=== PATIENT | female | born 1980 | race Caucasian/White ===

== ENCOUNTER 2016-07-02 18:08 | Observation (INO) | payer SELFPAY ==
[~2016-07-02] VITALS: Ht 162.6 cm; Wt 49.7 kg
[~2016-07-02 18:08] MED LIST: ALPR0.5T PO; BTR10SP2; BUTT50CA PO; ESCI10TA PO; HYDR-3702 PO; IBP200T PO; INDM25C PO; LORA0.5T PO; LURA40TA PO; MAGN27TA2 PO; METR500T17 PO; NAPR220C11 PO; OMEG-103; OMEP20CA12 PO; OXCA600T3 PO; OXYC1TAB87 PO; PREN1TAB79 PO; SUMA100T2 PO; TOPI-27 PO; TOPI200T25 PO; TOPI25TA36 PO; VILA40TA PO; [UNRECOGNIZED DRUG - CODE]
--- NOTE | 2016-07-02 19:28 | NUR ---
Pt arrives ambulatory direct admit from Dr Driver office. Pt c/o headache. Dr Hanley here to write orders. See admission assessment for further details.
--- OUTSIDE RECORDS SUMMARY | 2016-07-02 19:28 | XMS REPORT | Continuity of Care Document ---
Author Author [facility] Organization [facility] Address Unknown Phone Unavailable Care Team Providers Care Deboner Name Role Phone Villa Herman PCP [phone] Source Comments Some departments are not documenting in the electronic medical record. If you do not see the information that you expected, contact Release of Information in the Health Information Management department at [phone] for further assistance in locating additional records.[facility] Active Allergies and Adverse Reactions No Known Allergies Current Medications Prescription Sig. Disp. Refills Start End Date Status Date OXcarbazepine (TRILEPTAL) Take 1,200 mg by mouth Active 600 mg tablet twice daily. sumatriptan (IMITREX) 100 Take 100 mg by mouth as Active mg tablet Needed. SUMAtriptan (IMITREX) 6 Inject 6 mg into area(s) Active mg/0.5 mL injection as directed daily as needed. topiramate (TOPAMAX) 100 Take 100 mg by mouth Active mg tablet twice daily. indomethacin (INDOCIN) 25 Take 25 mg by mouth as Active mg capsule Needed. magnesium oxide (MAG-OX) Take 400 mg by mouth Active 400 mg tablet daily. omeprazole DR(+) Take 20 mg by mouth Active (PRILOSEC) 20 mg capsule daily. vitamins, B complex (B Take 1 Tab by mouth Active COMPLEX-VITAMIN B12) Tab daily. butorphanol (STADOL) 10 Apply 1 [place] to each Active mg/mL nasal spray nostril as directed every 4 hours as needed. vilazodone 40 mg Tab Take 20 mg by mouth every Active morning. predniSONE (DELTASONE) 10 Take 1 Tab by mouth 30 Tab 1 05/06/20 Active mg tablet daily. 12 Active Problems Problem Noted Date Migraine with status migrainosus 05/03/2012 Social History Tobacco Use Types Packs/Day Years Used Date Current Every Day Smoker Cigarettes 1 Tobacco Cessation: Ready to Quit: No Comments: Alcohol Use Drinks/Week oz/Week Comments No Last Filed Vital Signs Vital Sign Reading Time Taken Blood Pressure 121/85 05/06/2012 11:15 AM CDT Pulse 80 05/06/2012 11:15 AM CDT Temperature 36.7 C (98.1 F) 05/06/2012 11:15 AM CDT Respiratory Rate - - Height 1.626 m (5' 4") 05/03/2012 1:44 AM CDT Weight 54.2 kg (119 lb 7.8 oz) 05/06/2012 4:00 AM CDT Body Mass Index 20.5 05/06/2012 4:00 AM CDT Oxygen Saturation 100% 05/06/2012 11:15 AM CDT Plan of Care Health Maintenance Due Date Last Done Comments Physical (Comprehensive) 1989 Exam Pertussis Vaccine 1993 Tetanus Vaccine 1999 Cervical Cancer Screening 2003 Influenza Vaccine 03/04/2016 Results from Last 3 Months Not on file
[2016-07-02] MEDS ORDERED: HALOPERIDOL 5 MG/ML (HALDOL) 1 ML AMP IM PRN (19:30)
[2016-07-02] MEDS ORDERED: MAGNESIUM HYDROXIDE 80MG/ML (MILK OF MAGNESIA) 30 ML UDC PO PRN (19:30)
[2016-07-02] MEDS ORDERED: ACETAMINOPHEN 325 MG TAB (TYLENOL) PO PRN (19:30)
[2016-07-02] MEDS ORDERED: DOCUSATE SODIUM 100 MG (COLACE) CAP PO PRN (19:30)
[2016-07-02] MEDS ORDERED: LORazepam 2 MG/ML (ATIVAN) 1 ML VIAL IV PRN (19:30)
[2016-07-02] MEDS ORDERED: NICOTINE 21 MG (NICODERM) PATCH TD SCH (19:30)
[2016-07-02] MEDS ORDERED: CALCIUM CARBONATE CHEWABLE 300 MG (TUMS) TABLET PO PRN (19:30)
[2016-07-02] MEDS ORDERED: POLYETHYLENE GLYCOL 17 GM (MIRALAX) PACKET PO PRN (19:30)
[2016-07-02] MEDS ORDERED: MAG HYDROX/AL HYDROX/SIMETH 200-200-20/5 ML (MAG-AL PLUS) 30 ML UDC PO PRN (19:30)
[2016-07-02] MEDS ORDERED: PROMETHAZINE HCL INJ 12.5 MG in SODIUM CHLORIDE 25 ML IV PRN (19:30)
[2016-07-02] MEDS ORDERED: THIAMINE 100 MG/ML (VITAMIN B1) 2 ML VIAL ONE (19:49)
[2016-07-02] MEDS ORDERED: SODIUM CHLORIDE FLUSH ONE (19:49)
[2016-07-02] MEDS ORDERED: D5LR 1,000 ML IV ONE (19:49)
--- NOTE | 2016-07-02 20:00 | NUR ---
22G SL started to left wrist by Kim Ramirez RN.
[2016-07-02 20:13] VITALS: BP 103/68
[2016-07-02] MEDS: MULTIVITAMIN INJ 10 ML, THIAMINE INJ 100 MG, MAGNESIUM SULFATE 1GM VIAL 2 GM in D5LR 1,... IV SCH (20:25)
[2016-07-02] MEDS ORDERED: METHADONE 10 MG (DOLOPHINE) TAB PO ONE (20:30)
[2016-07-02] MEDS ORDERED: KETOROLAC 30 MG/ML (TORADOL) 1 ML VIAL IV PRN (20:35)
--- NOTE | 2016-07-02 20:35 | History and Physical (E) ---
History & Physical PCP: Herman Driver MD CC: Narcotic withdrawal HPI Jesenia Bethea is a 36 year old female admitted from home per PCP request for narcotic withdrawal. He relays history that she contacted him for help. He has not been prescribing her any narcotics but she admitted to him she has been purchasing oxycodone/acetaminophen illicitly and using that. She described feeling more anxious, nauseous, with headache and "feeling like a want to crawl out of my skin." On arrival to unit, awake, alert, interactive, oriented, NAD. She is pleasant and cooperative. Relays history well. Admits to taking percocets since March. Taking 12 or more per day, often 4 at a time of 10-mg strength. Also sometimes taking morphine CR 30 mg tabs when she can get some. Last time she took any narcotic was morphine last night. Has no more pills at home. Denies injection medications ever. Called PCP today because "I wanted to be honest with him" and she felt she would need help to stop her current rash of usage. PMH * Depression * Bipolar Disorder * History of SVT * Migraines * Alcohol abuse with previous admissions for intoxication * Narcotic abuse * SURGICAL HISTORY * SVT s/p ablation * History of nasal polyps * 08/2015 * Strabismus surgery, age 7 and age 17 ALLERGIES: Please see list at end of report. HOME MEDICATIONS: Please see list at end of report. FH Mom is living and is healthy. Father is living and has diabetes, HTN. SOCIAL HISTORY . Lives in [place] with her three children. Parents live in the area and are supportive. Unemployed. Smokes. Drank last night, liquor. Says she had been staying sober before that. Taking illicit Percocet. ROS CONSTITUTION: Thinks she has lost a little weight. [place] fevered/chilled but no objective temp. HEENT: No change in vision or hearing. No sores in mouth, sore throat. CV: Has felt some palpitations. PULM: No cough, shortness of breath, difficulty breathing. GI: Nausea. Denies constipation or diarrhea. : No dysuria. No blood in urine. MS: Back pain. NEURO: No numbness or tingling. No weakness. INTEG: No rashes, lesions, or sores. ENDO: No heat or cold intolerance. No polydipsia or polyuria. HEME/LYMPH: No easy bruising or bleeding. No swollen glands. PSYCH: No change in mood or behavior. OBJECTIVE Temp 98.9 HR 107 RR 18 BP 103/68 93% RA GEN: Awake, alert, oriented, NAD HEENT: EOMI, PERRL, mildly dry oral mucosa. CV: RRR S1 S2 normal with no murmur LUNGS: CTA B with no R/R/W. ABD: Soft, NT/ND with normal bowel sounds. EXTR: No C/C/E. Normal peripheral pulses. INTEG: No rash. Tattoos. NEURO: No focal motor neuro deficit. LABS: PENDING ASSESSMENT Jesenia Bethea is a 36 year old female admitted from home per PCP request for narcotic withdrawal. She has long history of substance abuse with alcohol and narcotics. She has other chronic problems. PLAN * Narcotic withdrawal: Check labs, UDS, acetaminophen, salicylate, alcohol levels. Lorazepam for acute withdrawal symptoms. Methadone 20 mg x 1 dose. Avoid further narcotic administration. Monitor vitals, monitor for withdrawal symptoms. * Nausea: Ondansetron, promethazine * Constipation: Bowel regimen * Tobacco abuse: Nicotine patch. 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 * Alcohol use: Check level. 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 * TONEY: Acetaminophen, ibuprofen. * F/E/N: General diet. Withdrawal fluids. * Prophylaxis: Ambulate * Code Status: Full * Dispo: Observation, expecting 2 day stay. Would not recommend discharge with methadone nor with buprenorphine unless she is referred to a specialist who will be able to continue withdrawal management. CHRONIC ISSUES * Migraines: Topiramate * Depression: Citalopram (sub for escitalopram) * GERD: Observe. * Bipolar mood disorder: Oxcarbazepine Allergies/Home Medications Allergies: Coded Allergies: No Known Drug Allergies (Unverified , 06/24/16) Reported Home Medications Scheduled Butorphanol Tartrate (Stadol NS) 1 SPRAY NA PRN up to 3/week (Reported) Escitalopram Oxalate (Lexapro) 20 MG PO DAILY (Reported) Omeprazole (Omeprazole) 1 CAP PO DAILY (Reported) Oxcarbazepine (Trileptal) 1,200 MG PO BID (Reported) Topiramate (Topiramate) 1 TAB PO BID (Reported) Copies to: End of Report . LIAT RANDHAWA MD Jul 02, 2016 20:07
[2016-07-02 20:45] LABS: BASOPHILS % (AUTO) 1 % (0-2); EOSINOPHILS # (AUTO) 0.1 10^3uL; EOSINOPHILS % (AUTO) 1 % (0-4); LYMPHOCYTES # (AUTO) 3.6 X10^3; MEAN CORPUSCULAR HEMOGLOBIN 28.9 PG (26.0-34.0); MEAN CORPUSCULAR HGB CONC 34.1 g/dL (31.0-37.0); MEAN CORPUSCULAR VOLUME 85 FL (80-100); MEAN PLATELET VOLUME 10.8 FL (6.0-9.5); MONOCYTES # (AUTO) 0.6 X10^3; MONOCYTES % (AUTO) 5 % (3-11); NEUTROPHILS # (AUTO) 6.8 X10^3; NEUTROPHILS % (AUTO) 61 % (51-67); PLATELET COUNT 323 10^3uL (150-450); WHITE BLOOD COUNT 11.09 10^3uL (4.0-11.0)
[2016-07-02 20:59] LABS: ALBUMIN 3.9 g/dL (3.4-5.0); ALKALINE PHOSPHATASE 76 U/L (38-126); ANION GAP 13.5 MEQ/L (3-15); BUN/CREATININE RATIO 20 (10-20); CALCULATED IONIZED CALCIUM 4.2 mg/dL (3.8-4.6); TOTAL PROTEIN 6.1 g/dL (6.4-8.5)
[2016-07-02] MEDS: ONDANSETRON 4 MG (ZOFRAN) ORAL DISSOLVE TAB PO PRN (21:32)
[2016-07-02] MEDS: IBUPROFEN 600 MG (MOTRIN) TAB PO PRN (21:32)
[2016-07-02] MEDS: LORazepam 2 MG/ML (ATIVAN) 1 ML VIAL IV PRN ×2 (21:32→22:58)
--- NOTE | 2016-07-02 21:32 | NUR ---
1mg IV Ativan given per w/d protocol for pt c/o of anxiety, "crawling out of skin" feeling, and tachycardia.
[2016-07-02] MEDS: OXcarbazepine (TRILEPTAL) 300 MG TAB PO SCH (21:33)
[2016-07-02] MEDS: toPIRamate 100 MG (TOPAMAX) TAB PO SCH (21:33)
[2016-07-02] MEDS: NICOTINE 21 MG (NICODERM) PATCH TD SCH (21:33)
--- NOTE | 2016-07-02 22:58 | NUR ---
2mg IV Ativan given per w/d protocol for pt c/o anxiety, "crawling out of skin" feeling, nausea.
--- NOTE | 2016-07-02 23:50 | NUR ---
Pt states that nothing is working, she is "still hurting," her anxiety is "through the roof." Discussed with pt that she may feel worse before she feels better. Pt voices understanding, but says "I don't know if all this is worth the anxiety and pain." Pt talks about leaving AMA. Dr Hanley aware of situation.
--- NOTE | 2016-07-03 | NUR ---
Pt states she is leaving; signs AMA paperwork. IV discontinued to left wrist; catheter tip intact. Nicotine patch taken off pt at this time. As pt is walking to elevator, Dr Hanley stops pt to discuss pt's reasons for leaving. After conversation with Dr Hanley and updated plan of care for narcotic withdrawal, pt decides to stay. SL restarted to RFA on first attempt by this nurse. Banana bag reinitiated. Nicotine patch replaced.
[2016-07-03] MEDS ORDERED: SODIUM CHLORIDE FLUSH ONE (00:08)
[2016-07-03] MEDS ORDERED: NICOTINE POLACRILEX 2 MG (NICORETTE) GUM BC PRN (00:10)
[2016-07-03] MEDS ORDERED: HYDROmorphone 1 MG/ML (DILAUDID) SYRINGE IV PRN (00:10)
--- NOTE | 2016-07-03 00:16 | Progress Note (E) ---
Progress Note Called by RN with patient complaint of not feeling any better despite therapies thus far, still feeling TONEY, reported to RN "I feel worse than when I came in." Seen and examined. Not combative, but tearful, dressed and preparing to leave AMA. Discussed her symptoms. She readily admits planning to leave to get some more percocet and is tearful, acknowledging she can ill afford the drugs. But she says she feels desperate and doesn't know what else to do. Explained that she is was guaranteed to not be successful if she left, that giving us only 6 hours is not enough time, that additional therapies have the potential to help but that she has to give them time to work. She voices appreciation, agrees to let RN restart IV. Prescribed hydromorphone IV as adjunct because methadone has not had any effect yet. Continue other therapies for TONEY. Nicotine gum in addition to patch due to severity of cravings. Added baclofen which has some evidence as an adjunct in helping with cravings. Continue IVF, lorazepam, supportive care. LIAT RANDHAWA MD Jul 03, 2016 00:16
[2016-07-03] MEDS: BACLOFEN 10 MG (LIORESAL) TAB PO SCH ×4 (00:23→16:51)
[2016-07-03] MEDS: NICOTINE 21 MG (NICODERM) PATCH TD SCH (00:24)
[2016-07-03 00:37] VITALS: BP 124/69
[2016-07-03 00:44] LABS: BILIRUBIN,URINE Negative (Negative); COLOR,URINE Yellow; GLUCOSE, URINE (UA) Negative (Negative); LEUKOCYTE ESTERASE ,URINE Negative (Negative)
[2016-07-03 00:53] LABS: CLARITY,URINE Slightly Cloudy
[2016-07-03 00:54] LABS: AMORPHOUS SEDIMENT,UR 2+ /HPF; AMPHETAMINE SCREEN, URINE Positive (Negative); CANNABINOID SCREEN, URINE Negative (Negative); METHAMPHETAMINE SCREEN URINE S NEGATIVE (NEGATIVE); OPIATE SCREEN URINE Negative (Negative); PROPOXYPHENE STAT NEGATIVE (NEGATIVE); URINE CENTRIFUGED VOLUME 12 mL
[2016-07-03] MEDS: LORazepam 2 MG/ML (ATIVAN) 1 ML VIAL IV PRN (01:08)
[2016-07-03] MEDS: HYDROmorphone 1 MG/ML (DILAUDID) SYRINGE IV PRN ×6 (01:08→23:15)
--- NOTE | 2016-07-03 01:08 | NUR ---
Dilaudid increased to 2mg q3h PRN. Dr Hanley gives verbal okay to give dose now. Pt sitting in waiting area, tearful, anxious, talking on phone. 4 mg IV Ativan given slow IV push also. Long conversation had with pt at this time.
--- NOTE | 2016-07-03 01:45 | NUR ---
Pt states she is feeling sleepy. Ambulates back to room and rests in chair. Will continue to monitor closely.
--- NOTE | 2016-07-03 03:12 | NUR ---
Pt resting quietly with eyes closed.
--- NOTE | 2016-07-03 06:32 | NUR ---
Pt awake this morning, c/o TONEY rated at 8/10. PRN dilaudid provided. Pt asks for food; states "I feel like I haven't eaten in days." Pudding and jello provided. Banana bag infusing w/o difficulty into RFA. Resp even and non labored on RA.
[2016-07-03 08:28] VITALS: BP 100/68
[2016-07-03] MEDS: CITALOPRAM 20 MG (CELEXA) TABLET PO SCH (09:00)
[2016-07-03] MEDS: toPIRamate 100 MG (TOPAMAX) TAB PO SCH ×2 (09:05→20:18)
[2016-07-03] MEDS: OXcarbazepine (TRILEPTAL) 300 MG TAB PO SCH ×2 (09:06→20:19)
[2016-07-03] MEDS: MULTIVITAMIN INJ 10 ML, THIAMINE INJ 100 MG, MAGNESIUM SULFATE 1GM VIAL 2 GM in D5LR 1,... IV SCH ×2 (10:00→23:13)
--- NOTE | 2016-07-03 10:09 | NUR ---
Pt remains extremely drowsy, falls asleep mid-conversation with this nurse. Requesting Stadol nasal spray for headache- will discuss with Dr. Alcantara. VSS. Pt falling asleep during bfst meal. will cont to monitor patient. Banana bag infusing into 20g IV into RFA without difficulty as ordered at 75ml/hr.
--- NOTE | 2016-07-03 13:12 | NUR ---
Pt more awake for noon meal- still falls asleep during meal- wakes easily. Pt c/o headache rated /- Refuses to try Tylenol, Ibuprofen or Toradol. - states these only make her frustrated and angry. Only will agree to take Dilaudid IV for headache. Called Dr. Alcantara- reported pt condition and request to her- she okays administration of Dilaudid- she did change dosing to 1-2mg IV rather than 2mg. Will administer.
[2016-07-03] MEDS ORDERED: HYDROmorphone 1 MG/ML (DILAUDID) SYRINGE ONE (13:21)
--- NOTE | 2016-07-03 13:27 | NUR ---
Dilaudid 1mg IV given as ordered. Pt wakes after saying her name multiple times and tactile stimulation. States she does not remember seeing Dr. Alcantara today- states she needs to talk to the DrRodrigo soon. Ensured patient that Dr. Alcantara was already in room and that this nurse would let Dr. Alcantara know she would like to speak to her.
[2016-07-03 16:33] VITALS: BP 132/66
--- NOTE | 2016-07-03 16:50 | NUR ---
Pt c/o headache rated 10/10- awake, eating sandwich. States "I don't feel like I know what's going on." Educated pt on plan of care that Dr. Driver reviewed with her while he was here. Pt stares out window- no answer after explanation. Pt requests pain meds, again refused IV Toradol, Tylenol or ibuprofen. Will only take Dilaudid 2mg IV- states "1 [mg] didn't help me." given prn now as ordered.
--- NOTE | 2016-07-03 17:28 | Progress Note-A/P (E) ---
Progress Note Subjective: Patient is very fatigued today, likely due to being up late last night and the narcotics and benzodiazepines provided to her overnight. Discussed care with Dr. Driver. He contacted Dr. Guadarrama who is certified to prescribed Suboxone. The patient wishes to have this medication prescribed. However, Dr. Guadarrama's Suboxone clinic is currently full. There are 20 people on a waiting list that she could be added to. He thinks it will be about 6 weeks before the patient can get into his clinic. His recommendations are to either go to a methadone clinic or to continue using until she can get into see him. Dr. Driver discussed these options with the patient. She feels she can get to [place] daily for the methadone clinic and she will get on Dr. Guadarrama's waiting list. Will have care coordination get information regarding methadone clinic on Tuesday. Patient is giving mixed information regarding how many narcotics she has been taking. She reported six 10mg oxycodone's and two 30mg oxycodone tabs each day to Dr. Driver. However, she reported six 10mg oxycodones every 3-4 hours and 30mg of morphine every 3-4 hours to the nursing staff. Will be conservative on conversion dosing. Objective: Current Medications Acetaminophen 650 mg Q6H PRN PO Ibuprofen 600 mg Q6H PRN PO Calcium Carbonate 300 mg Q8H PRN PO Al Hydrox/Mg Hydrox/Simethicone 30 ml Q6H PRN PO Ondansetron 4 mg Q6HR PRN PO Promethazine Q6H PRN IV Magnesium Hydroxide 30 ml DAILY PRN PO Polyethylene Glycol 17 gm DAILY PRN PO Docusate 100 mg BID PRN PO Withdrawal fluids @ 75 mls/hr [id number] IV Thiamine 100 mg DAILY@0800 PO Lorazepam 0.5-4 mg Q1H PRN IV Lorazepam 4 mg PRN IV Haloperidol 2.5 mg X1 PRN PRN IM Nicotine 21 mg DAILY TD Topiramate 100 mg BID PO Citalopram 20 mg DAILY PO Oxcarbazepine 1,200 mg BID PO Ketorolac 30 mg Q6HR PRN IV Nicotine 2 mg Q1H PRN BC Baclofen 10 mg TID PO Hydromorphone 1-2mg q3 prn Q3H PRN IV Vital Signs Date Time Temp Pulse Resp B/P Pulse Ox O2 Delivery O2 Flow Rate FiO2 1231/16 16:33 98.1 104 20 132/66 99 Room air I & O Past 24 hrs 07/03/16 07:00 Intake Total 2241 ml Output Total 800 ml Balance 1441 ml Intake Oral 575 ml IV Total 1666 ml Output Urine Total 800 ml Physical Exam General--Awakens during my exam, but is very lethargic. No distress. HEENT--Normocephalic. MMM in oral cavity. Lungs--Clear to auscultation bilaterally. Nonlabored respirations. Heart--RRR. No murmurs. Abdomen--Normal bowel sounds. Soft. Nondistended. Nontender. Extremities--No edema. Past 24 hour Lab Results 07/02/16 20:19 Laboratory Results Past 24 Hrs 07/02/16 20:19: Acetaminophen Level < 10.0, Alanine Aminotransferase (ALT/SGPT) 23, Albumin 3.9 , Albumin/Globulin Ratio 1.772, Alkaline Phosphatase 76, Anion Gap 13.5, Aspartate Amino Transf (AST/SGOT) 15, BUN/Creatinine Ratio 20, Basophils # (Auto ) 0.1, Basophils (%) (Auto) 1, Blood Urea Nitrogen 12, C-Reactive Protein < 0.50 , Calcium Level 8.8, Calcium/Ionized Calcium Ratio 4.2, Calculated Osmolality 274, Carbon Dioxide Level 24, Chloride Level 109, Creatinine 0.59, Eosinophils # (Auto) 0.1, Eosinophils (%) (Auto) 1, Estimat Glomerular Filtration Rate 141.2 , Estimated GFR (Non- 116.7, Glucose Level 93, Hematocrit 36.90 , Hemoglobin 12.6, Lymphocytes # (Auto) 3.6, Lymphocytes (%) (Auto) 33, Mean Corpuscular Hemoglobin 28.9, Mean Corpuscular Hemoglobin Concent 34.1, Mean Corpuscular Volume 85, Mean Platelet Volume 10.8, Monocytes # (Auto) 0.6, Monocytes (%) (Auto) 5, Neutrophils # (Auto) 6.8, Neutrophils (%) (Auto) 61, Platelet Count 323, Potassium Level 3.3, Red Blood Count 4.36, Red Cell Distribution Width 13.2, Salicylates Level 3.8, Serum Alcohol < 10.0, Sodium Level 143, Thyroid Stimulating Hormone (TSH) 0.60, Total Bilirubin 0.5, Total Protein 6.1, White Blood Count 11.09 07/03/16 00:29: Ur Tricyclic Antidepressants Screen Negative, Urine Amorphous Sediment 2+, Urine Amphetamines Screen Positive, Urine Bacteria Rare, Urine Barbiturates Screen Negative, Urine Benzodiazepines Screen Positive, Urine Bilirubin Negative , Urine Cannabinoids Screen Negative, Urine Clarity Slightly cloudy, Urine Cocaine Screen Negative, Urine Collection Type Clean catch, Urine Color Yellow, Urine Glucose (UA) Negative, Urine Ketones Negative, Urine Leukocyte Esterase Negative, Urine Methadone Screen Negative, Urine Methamphetamines Screen Negative, Urine Mucus 1+, Urine Nitrite Negative, Urine Opiates Screen Negative , Urine Oxycodone Screen Negative, Urine Phencyclidine Screen Negative, Urine Propoxyphene Screen Negative, Urine Protein Negative, Urine RBC 2-5, Urine RBC ( Auto) Trace-lysed, Urine Specific [place] 1.020, Urine Squamous Epithelial Cells 10-20, Urine Urobilinogen 1.0, Urine WBC None seen, Urine pH 7.0, Volume Urine Centrifuged 12 ml Assessment/Plan Narcotic withdrawal Monitoring labs. UDS negative for narcotics. Acetaminophen, salicylate, and alcohol levels all negative. Continue lorazepam for acute withdrawal symptoms. Provided methadone 20 mg x 1 dose for withdrawal. Unclear how much narcotic the patient is using daily, as noted above, mixed information has been provided by the patient. Conservative conversion would be (using the amount of narcotic the patient is reporting 60mg daily of oxycodone and 60mg long acting oxycodone) converts to around 20mg of methadone. Will continue this dose for now and titrate up. Will have care coordination look into options with the methadone clinic in [place]. Nausea Continue prn ondansetron and promethazine. Leukocytosis Likely related to vomiting, however will monitor for s/s of infection. Constipation Bowel regimen Tobacco abuse Nicotine patch. 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 Reported alcohol use Serum etoh negative. Continue w/d protocol. TONEY Continue acetaminophen and ibuprofen. Migraines Continue home topiramate. Depression Continue citalopram (sub for escitalopram), however patient refused today's dose. GERD Observe. Bipolar mood disorder Continue home oxcarbazepine. FEN General diet. Withdrawal fluids. Mild hypokalemia. Monitor closely, replace as needed. Prophylaxis Ambulate. Code Status Full. Dispo Observation status. Will look for dispo options on Tuesday. MALLORY MUNOZ MD Jul 03, 2016 17:28
[2016-07-03] MEDS ORDERED: MAGNESIUM SULFATE 1 GM/2 ML VIAL ONE (22:57)
[2016-07-03] MEDS ORDERED: MULTIVITAMINS (MVI) 2 5 ML VIALS IV ONE (22:58)
[2016-07-03] MEDS ORDERED: THIAMINE 100 MG/ML (VITAMIN B1) 2 ML VIAL ONE (22:58)
[2016-07-03] MEDS: ONDANSETRON 4 MG (ZOFRAN) ORAL DISSOLVE TAB PO PRN (23:15)
[2016-07-03 23:41] VITALS: BP 115/68
--- NOTE | 2016-07-04 05:32 | NUR ---
2030-Dilaudid 2mg SIVP PRN for pain. Rates 8/, reports if she doesn't get something soon she will leave and call her dealer. 2319-Gave Dilaudid 2mg SIVP for pain 02/10 to head, gave Zofran 4mg SL for nausea. Will continue to monitor. 0520-Pt is resting in bed asleep, does not appear in pain. Call light is in reach. Will continue to monitor.
[2016-07-04 06:56] LABS: BASOPHILS % (AUTO) 1 % (0-2); EOSINOPHILS # (AUTO) 0.3 10^3uL; EOSINOPHILS % (AUTO) 4 % (0-4); LYMPHOCYTES # (AUTO) 3.9 X10^3; MEAN CORPUSCULAR HEMOGLOBIN 28.5 PG (26.0-34.0); MEAN CORPUSCULAR HGB CONC 33.1 g/dL (31.0-37.0); MEAN CORPUSCULAR VOLUME 86 FL (80-100); MEAN PLATELET VOLUME 10.8 FL (6.0-9.5); MONOCYTES # (AUTO) 0.5 X10^3; MONOCYTES % (AUTO) 6 % (3-11); NEUTROPHILS # (AUTO) 3.9 X10^3; NEUTROPHILS % (AUTO) 45 % (51-67); PLATELET COUNT 274 10^3uL (150-450); WHITE BLOOD COUNT 8.62 10^3uL (4.0-11.0)
[2016-07-04 07:05] LABS: ALBUMIN 2.9 g/dL (3.4-5.0); MAGNESIUM* 2.4 mg/dL (1.6-2.3); PHOSPHORUS 4.8 mg/dL (2.4-4.9)
[2016-07-04 07:15] LABS: ANION GAP 11.9 MEQ/L (3-15)
[2016-07-04] MEDS ORDERED: SODIUM CHLORIDE FLUSH 10 ML ONE (07:35)
[2016-07-04] MEDS: SODIUM CHLORIDE FLUSH 10 ML SYR IV SCH ×5 (07:38→15:33)
--- NOTE | 2016-07-04 07:38 | NUR ---
Dilaudid 2 mg given for c/o TONEY. 02/10. Cooperative, talks of trying to get off addictive meds at home. Wants to get help.
[2016-07-04] MEDS: HYDROmorphone 1 MG/ML (DILAUDID) SYRINGE IV PRN ×4 (07:39→21:26)
--- NOTE | 2016-07-04 08:27 | Progress Note-A/P (E) ---
Progress Note Subjective: Better night, no calls to me regarding patient's care or requests. Mid-morning the patient is requesting to leave the floor and go outside to "get some fresh air." The patient threatens to leave AMA if she can not go outside. Allowed the patient to leave the floor with a staff member. Shortly after the patient left the floor there was a call requesting to leave property to smoker a cigarette. Allowed this also to prevent the patient from leaving AMA. The patient did return to the floor. Discussed the current care plan of contacting the methadone clinic on Tuesday. Patient is agreeable with this plan. She is also reporting some nausea and states the Zofran is not helping. She would like try some promethazine. Discussed with the patient that leaving the floor, and certainly leaving the hospital grounds is against hospital policy and this will not be allowed further. Later in the afternoon the patient again requesting to leave the floor for a cigarette. She is again threatening to leave AMA. Discussed with Dr. Driver. Discussed current cares and patient's threats to leave AMA if the patient does not get what she wants. Dr. Driver agrees that the patient will have to abide by hospital policy or she can leave AMA. Objective: Current Medications Acetaminophen 650 mg Q6H PRN PO Ibuprofen 600 mg Q6H PRN PO Calcium Carbonate 300 mg Q8H PRN PO Al Hydrox/Mg Hydrox/Simethicone 30 ml Q6H PRN PO Ondansetron 4 mg Q6HR PRN PO Promethazine Q6H PRN IV Magnesium Hydroxide 30 ml DAILY PRN PO Polyethylene Glycol 17 gm DAILY PRN PO Docusate 100 mg BID PRN PO Withdrawal fluids @ 75 mls/hr [id number] IV Thiamine 100 mg DAILY@0800 PO Lorazepam 0.5-4 mg Q1H PRN IV Lorazepam 4 mg PRN IV Haloperidol 2.5 mg X1 PRN PRN IM Nicotine 21 mg DAILY TD Topiramate 100 mg BID PO Citalopram 20 mg DAILY PO Oxcarbazepine 1,200 mg BID PO Ketorolac 30 mg Q6HR PRN IV Nicotine 2 mg Q1H PRN BC Baclofen 10 mg TID PO Hydromorphone 1-2mg q3 prn Q3H PRN IV Vital Signs Date Time Temp Pulse Resp B/P Pulse Ox O2 Delivery O2 Flow Rate FiO2 07/03/16 23:41 97.6 88 16 115/68 98 Room air I & O Past 24 hrs 07/04/16 06:59 Intake Total 3554 ml Output Total 1700 ml Balance 1854 ml Intake Oral 1764 ml IV Total 1790 ml Output Urine Total 1700 ml Physical Exam General--Awakens during my exam, but is very lethargic. No distress. HEENT--Normocephalic. MMM in oral cavity. Lungs--Clear to auscultation bilaterally. Nonlabored respirations. Heart--RRR. No murmurs. Abdomen--Normal bowel sounds. Soft. Nondistended. Nontender. Extremities--No edema. Past 24 hour Lab Results 07/04/16 06:23 Laboratory Results Past 24 Hrs 07/04/16 06:23: Albumin 2.9, Anion Gap 11.9, Basophils # (Auto) 0.0, Basophils (%) (Auto) 1, Blood Urea Nitrogen 7, Calcium Level 8.3, Carbon Dioxide Level 21, Chloride Level 111, Creatinine 0.52, Eosinophils # (Auto) 0.3, Eosinophils (%) (Auto) 4, Estimat Glomerular Filtration Rate 163.3, Estimated GFR (Non- 135.0, Glucose Level 89, Hematocrit 32.90, Hemoglobin 10.9, Lymphocytes # (Auto ) 3.9, Lymphocytes (%) (Auto) 45, Magnesium Level 2.4, Mean Corpuscular Hemoglobin 28.5, Mean Corpuscular Hemoglobin Concent 33.1, Mean Corpuscular Volume 86, Mean Platelet Volume 10.8, Monocytes # (Auto) 0.5, Monocytes (%) ( Auto) 6, Neutrophils # (Auto) 3.9, Neutrophils (%) (Auto) 45, Phosphorus Level 4.8, Platelet Count 274, Potassium Level 3.7, Red Blood Count 3.83, Red Cell Distribution Width 13.0, Sodium Level 140, White Blood Count 8.62 Imaging Results None Assessment/Plan Narcotic withdrawal Monitoring labs. UDS negative for narcotics. Acetaminophen, salicylate, and alcohol levels all negative. Continue lorazepam for acute withdrawal symptoms. Provided methadone 20 mg x 1 dose for withdrawal. Unclear how much narcotic the patient is typically using daily, mixed information has been provided by the patient. Conservative conversion (using the amount of narcotic the patient is reporting 60mg daily of oxycodone and 60mg long acting oxycodone) is around 20mg of methadone. Will provide methadone 20mg po daily. Will have care coordination look into options with the methadone clinic in [place]. Nausea Continue prn ondansetron and promethazine. Leukocytosis Likely related to vomiting, however will monitor for s/s of infection. Constipation Bowel regimen Tobacco abuse Nicotine patch. 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 Reported alcohol use Serum etoh negative. Continue w/d protocol. TONEY Continue acetaminophen and ibuprofen. Patient was using dilaudid 1-2 mg q 3hrs to treat headache. However since starting methadone, the dilaudid has been cut back to 0.5mg q 6 hours. Migraines Continue home topiramate. Depression Continue citalopram (sub for escitalopram). GERD Observe. Bipolar mood disorder Continue home oxcarbazepine. FEN General diet. Withdrawal fluids. Mild hypokalemia. Monitor closely, replace as needed. Prophylaxis Ambulate. Code Status Full. Dispo Observation status. Continue to monitor and look for dispo options on Tuesday. Patient is threatening to AMA if she does not get what she wants (dilaudid or going outside to smoke). Will hold patient to hospital policies. And will not increase narcotics while she is on methadone as this is unsafe. MALLORY MUNOZ MD Jul 04, 2016 08:27
[2016-07-04 08:30] VITALS: BP 105/65
--- NOTE | 2016-07-04 10:15 | NUR ---
Visiting with pt regarding addictions. Pt. is wanting to get treatment and get off meds. gets 120 Percocet tablets per month from a woman that is a paraplegic who gets 150 tablets a month and only uses 30 tablets.
[2016-07-04] MEDS: NICOTINE 21 MG (NICODERM) PATCH TD SCH (10:20)
[2016-07-04] MEDS: toPIRamate 100 MG (TOPAMAX) TAB PO SCH ×2 (10:20→21:19)
[2016-07-04] MEDS: CITALOPRAM 20 MG (CELEXA) TABLET PO SCH (10:21)
[2016-07-04] MEDS: OXcarbazepine (TRILEPTAL) 300 MG TAB PO SCH ×2 (10:21→21:19)
[2016-07-04] MEDS: BACLOFEN 10 MG (LIORESAL) TAB PO SCH ×3 (10:22→21:19)
--- NOTE | 2016-07-04 11:20 | NUR ---
Dilaudid 2 mg IV given for c/o TONEY pain - 01/10. Informed we will begin Methadone pills, and then decrease Dilaudid doses.
[2016-07-04] MEDS: METHADONE 10 MG (DOLOPHINE) TAB PO SCH (11:40)
--- NOTE | 2016-07-04 11:40 | NUR ---
Methadone 20 mg given po. Up ad sha in room. Zofran 4 mg given po for nausea per request.
[2016-07-04] MEDS: ONDANSETRON 4 MG (ZOFRAN) ORAL DISSOLVE TAB PO PRN (11:41)
--- NOTE | 2016-07-04 12:35 | NUR ---
Asks to walk in [place] - wants IV fluids off while walks. Threatend to go AMA if cannot walk alone and without IV. Dr. Alcantara rounds - Fluids dc'd for ambulation. Informed can walk anywhere on floor, but cannot leave floor. Soon after leaving room, stairway door heard. Pt going downstairs. Informed cannot leave floor. States will just go AMA. Informed needs to sign AMA paper and returns to floor. Dr. Alcantara visits with patient. freight clerk goes down with pt to sit outside x 10 mini.
[2016-07-04] MEDS: MULTIVITAMIN INJ 10 ML, THIAMINE INJ 100 MG, MAGNESIUM SULFATE 1GM VIAL 2 GM in D5LR 1,... IV SCH (13:39)
--- NOTE | 2016-07-04 14:55 | NUR ---
Dilaudid 0.5 mg given IV for TONEY pain - 02/10. States doesn't think pain med will help.
--- NOTE | 2016-07-04 15:20 | NUR ---
Phenergan [address] Alcantara request. Pt sits in chair texting on phone.
[2016-07-04] MEDS: PROMETHAZINE HCL INJ 25 MG in SODIUM CHLORIDE 25 ML IV PRN ×2 (15:21→21:36)
[2016-07-04 16:20] VITALS: BP 101/58
--- NOTE | 2016-07-04 17:40 | NUR ---
Pt restless. Wants to go out and smoke or go home AMA. Dr. Alcantara notified. Dr. Alcantara returns call and states is not to go out and smoke. Will have to go AMA if wants to go out.
--- NOTE | 2016-07-04 17:50 | NUR ---
Pt sleeping in chair. Not woken for supper. IV Banana bag cont. at 75 cc's hr. Resp. even and unlaborerd.
--- NOTE | 2016-07-04 20:23 | NUR ---
Pt c/o TONEY. States that toradol and tylenol and motrin do not help. States that the 0.5mg of Dilaudid isn't working either. PT says "well, I need to go out and smoke then." Informed pt of non-smoking policy. Pt states "I will just leave AMA and be readmitted." Discussed with pt how unlikely that would be to work out for her. Pt says "I don't care; smoking is that important to me." Dr Alcantara aware of situation; pt will be informed of options.
--- NOTE | 2016-07-04 20:30 | NUR ---
Pt c/o IV hurting. IV infiltrated. Discontinued with catheter tip intact. Pt on phone conversing with Dr Driver and her mother. Has not decided if she will stay or go. IV restart deferred until pt makes a decision.
--- NOTE | 2016-07-04 21:15 | NUR ---
Pt decides she will stay here; Dr Alcantara aware. 20g IV started to LFA; banana bag restarted at 75 ml/hr.
[2016-07-04] MEDS: IBUPROFEN 600 MG (MOTRIN) TAB PO PRN (21:20)
--- NOTE | 2016-07-04 21:20 | NUR ---
Pt provided with prn dilaudid, ibuprofen, and nicotine gum.
--- NOTE | 2016-07-04 22:46 | NUR ---
Pt resting quietly in bed.
[2016-07-05 00:10] VITALS: BP 110/72
--- NOTE | 2016-07-05 05:58 | NUR ---
Pt rests without c/o for the rest of the night. Wakes to verbal stimuli, but easily falls back asleep. IV saline locked after banana bag completed. Resp even and non labored on RA.
[2016-07-05] MEDS ORDERED: THIAMINE 100 MG (VITAMIN B-1) TAB PO SCH (08:00)
[2016-07-05 08:05] VITALS: BP 102/65
[2016-07-05] MEDS: OXcarbazepine (TRILEPTAL) 300 MG TAB PO SCH (08:48)
[2016-07-05] MEDS: METHADONE 10 MG (DOLOPHINE) TAB PO SCH (08:49)
[2016-07-05] MEDS: toPIRamate 100 MG (TOPAMAX) TAB PO SCH (08:49)
[2016-07-05] MEDS: BACLOFEN 10 MG (LIORESAL) TAB PO SCH ×2 (08:49→13:05)
[2016-07-05] MEDS: CITALOPRAM 20 MG (CELEXA) TABLET PO SCH (08:49)
[2016-07-05] MEDS: NICOTINE 21 MG (NICODERM) PATCH TD SCH (08:49)
[2016-07-05] MEDS ORDERED: SODIUM CHLORIDE FLUSH 3 ML SYR ONE (08:53)
[2016-07-05] MEDS: HYDROmorphone 1 MG/ML (DILAUDID) SYRINGE IV PRN (08:57)
--- NOTE | 2016-07-05 09:00 | NUR ---
Request dilaudid for headache. States her regular meds take too long to work.
--- NOTE | 2016-07-05 10:16 | NUR ---
NUTRITION ASSESSMENT Level 1 Patient: Jesenia Bethea Age/Sex: 36/F Date Screened: 07-05-16 Weight: 109.3#/49.7 kg Height: 64 inches Primary Diagnosis: withdrawals Diet Order: regular Relevant labs: N/A Food allergies: N Nutrition Assessment Criteria Age over 80: N Body Mass Index (BMI) under 19: 6 points Admission Screening Indicates Risk? 6 points Moderate/High Risk Diagnosis: 3 points TPN or PPN: N NPO or clear liquid diet: N Serum Glucose <70 or >180: N/A Hgb A1c >6.7: N/A Total: 15 points Risk Screen: __ Patient at low nutritional risk based on available data; reevaluate in 5-7 days __ Patient at moderate nutritional risk based on available data; reevaluate in 3-5 days _X_ Patient at high nutritional risk; complete Nutrition Assessment within 48 hours of admission.
--- NOTE | 2016-07-05 13:07 | NUR ---
Visitor at bedside . Patient awakened for lunch.
--- NOTE | 2016-07-05 13:27 | NUR ---
Complains of headache. Motrin or Tylenol offered. Stares wants the "good stuff" . Requesting Diluadid. Informed too early for dilaudid. Tylenol and Motrin offered again and patient refused. Offered cool washcloth to head and was refused. States does not want anything at this time.
--- NOTE | 2016-07-05 13:40 | NUR ---
Patient states she wants to leave AMA. Dr. Hanley informed. Pateint informed Dr. Hanley wants to set [facility], and she could not go home while still using dilaudid. Patient also states she wants to go outside to smoke. Informed patient she still has nicotine patch on. Patient states she removed it. Patient states everyone has been great and to tell Dr. Hanley thank you but that she still wants to leave AMA. AMA signed. Patient left amb. accompanied by friend.
--- NOTE | 2016-07-05 21:13 | Discharge Summary (E) ---
Discharge Summary (E) Admit Date/Time Jul 02, 2016 at 19:25 Discharge Date/Time Jul 05, 2016 at 13:40 Admitting Provider Liat Hanley MD Primary Care Provider Herman Driver MD Attending Provider Liat Hanley MD Consulting Provider History and Present Illness See History and Physical for complete details. Jesenia Bethea is a 36 year old female admitted from home per PCP request for narcotic withdrawal. She has long history of substance abuse with alcohol and narcotics. She has other chronic problems. Her symptoms were managed with withdrawal protocol including lorazepam. Despite getting methadone she insisted she needed narcotic and kept threatening to leave AMA. To help further manage her symptoms, hydromorphone was given. Over the course of the next few days, attempts were made to wean off the hydromorphone and scheduled methadone was given with plan to arrange for her to be seen in a methadone clinic in [place]. The clinic could not be contacted 07/05 because it was still closed for the holiday. On 07/05, patient simply decided not to wait and she did sign AMA paperwork and left without being seen. Hospital Course and Treatment * Narcotic withdrawal: Labs as noted. Lorazepam for acute withdrawal symptoms. Methadone 20 mg given without much patient satisfaction in relief of symptoms. Hydromorphone was given but with attempt to wean she expressed dissatisfaction and she left AMA. Had been planning to set her up with a methadone clinic but she left before this could be arranged. * Nausea: Ondansetron, promethazine * Constipation: Bowel regimen * Tobacco abuse: Nicotine patch. 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 * Alcohol use: level not elevated on admit. * TONEY: Acetaminophen, ibuprofen. * F/E/N: General diet. Withdrawal fluids. * Prophylaxis: Ambulate * Code Status: Full * Dispo: Observation. Left AMA. CHRONIC ISSUES * Migraines: Topiramate * Depression: Citalopram (sub for escitalopram) * GERD: Observe. * Bipolar mood disorder: Oxcarbazepine Discharge Physicial Exam General Vital Signs Date Time Temp Pulse Resp B/P Pulse Ox O2 Delivery O2 Flow Rate FiO2 07/05/16 08:05 99.1 85 16 102/65 96 Room air Discharge exam not available because she left AMA before being examined. Laboratory/Radiology Data Laboratory Results-14 Days 07/02/16 20:19: Acetaminophen Level < 10.0L, Alanine Aminotransferase (ALT/SGPT) 23L, Albumin 3.9, Albumin/Globulin Ratio 1.772, Alkaline Phosphatase 76, Anion Gap 13.5, Aspartate Amino Transf (AST/SGOT) 15, BUN/Creatinine Ratio 20, Basophils # (Auto ) 0.1, Basophils (%) (Auto) 1, Blood Urea Nitrogen 12#, C-Reactive Protein < 0.50, Calcium Level 8.8#, Calcium/Ionized Calcium Ratio 4.2, Calculated Osmolality 274L, Carbon Dioxide Level 24, Chloride Level 109H, Creatinine 0.59L , Eosinophils # (Auto) 0.1, Eosinophils (%) (Auto) 1, Estimat Glomerular Filtration Rate 141.2, Estimated GFR (Non- 116.7, Glucose Level 93#, Hematocrit 36.90, Hemoglobin 12.6, Lymphocytes # (Auto) 3.6, Lymphocytes (% ) (Auto) 33, Mean Corpuscular Hemoglobin 28.9, Mean Corpuscular Hemoglobin Concent 34.1, Mean Corpuscular Volume 85, Mean Platelet Volume 10.8H, Monocytes # (Auto) 0.6, Monocytes (%) (Auto) 5, Neutrophils # (Auto) 6.8, Neutrophils (%) (Auto) 61, Platelet Count 323#, Potassium Level 3.3L, Red Blood Count 4.36, Red Cell Distribution Width 13.2, Salicylates Level 3.8, Serum Alcohol < 10.0L, Sodium Level 143#, Thyroid Stimulating Hormone (TSH) 0.60#, Total Bilirubin 0.5# , Total Protein 6.1L, White Blood Count 11.09H 07/03/16 00:29: Ur Tricyclic Antidepressants Screen Negative, Urine Amorphous Sediment 2+H, Urine Amphetamines Screen PositiveH, Urine Bacteria Rare, Urine Barbiturates Screen Negative, Urine Benzodiazepines Screen PositiveH, Urine Bilirubin Negative, Urine Cannabinoids Screen Negative, Urine Clarity Slightly cloudy, Urine Cocaine Screen Negative, Urine Collection Type Clean catch, Urine Color Yellow, Urine Glucose (UA) Negative, Urine Ketones Negative, Urine Leukocyte Esterase Negative, Urine Methadone Screen Negative, Urine Methamphetamines Screen Negative, Urine Mucus 1+, Urine Nitrite Negative, Urine Opiates Screen Negative, Urine Oxycodone Screen Negative, Urine Phencyclidine Screen Negative, Urine Propoxyphene Screen Negative, Urine Protein Negative, Urine RBC 2-5, Urine RBC (Auto) Trace-lysedH, Urine Specific [place] 1.020, Urine Squamous Epithelial Cells 10-20, Urine Urobilinogen 1.0, Urine WBC None seen, Urine pH 7.0, Volume Urine Centrifuged 12 ml 07/04/16 06:23: Albumin 2.9#L, Anion Gap 11.9, Basophils # (Auto) 0.0, Basophils (%) (Auto) 1, Blood Urea Nitrogen 7, Calcium Level 8.3L, Carbon Dioxide Level 21L, Chloride Level 111H, Creatinine 0.52L, Eosinophils # (Auto) 0.3, Eosinophils (%) (Auto) 4 , Estimat Glomerular Filtration Rate 163.3, Estimated GFR (Non- 135.0, Glucose Level 89, Hematocrit 32.90L, Hemoglobin 10.9L, Lymphocytes # ( Auto) 3.9, Lymphocytes (%) (Auto) 45, Mean Corpuscular Hemoglobin 28.5, Mean Corpuscular Hemoglobin Concent 33.1, Mean Corpuscular Volume 86, Mean Platelet Volume 10.8H, Monocytes # (Auto) 0.5, Monocytes (%) (Auto) 6, Neutrophils # ( Auto) 3.9, Neutrophils (%) (Auto) 45L, Platelet Count 274, Potassium Level 3.7, Red Blood Count 3.83L, Red Cell Distribution Width 13.0, Sodium Level 140, White Blood Count 8.62, Magnesium Level 2.4H, Phosphorus Level 4.8 Discharge Disposition Discharged against medical advice. Discharge Medications Continued Medications: Escitalopram Oxalate (Lexapro) 10 Mg Tablet 20 MG PO DAILY Omeprazole (Omeprazole) 20 Mg Capsule.dr 1 CAP PO DAILY #90 Oxcarbazepine (Trileptal) 600 Mg Tablet 1200 MG PO BID Topiramate (Topiramate) 100 Mg Tablet 1 TAB PO BID #60 Discontinued Medications: Butorphanol Tartrate (Stadol NS) 25 Mg [place] 1 SPRAY NA PRN up to 3/week #5 Discharge Diagnosis See list above. Problems: Copies to: End of Report . LIAT HANLEY MD Jul 05, 2016 21:13
== END 2016-07-05 13:40 | disposition left against medical advice (07) ==
LOC: MED/SURG 19:25
PROVIDERS: ADMIT Internal Medicine; ATTEND Internal Medicine
DX: F11.23 Opioid dependence with withdrawal (principal); R11.2 Nausea with vomiting, unspecified; D72.829 Elevated white blood cell count, unspecified; E87.6 Hypokalemia; F17.200 Nicotine dependence, unspecified, uncomplicated; K59.00 Constipation, unspecified; G43.909 Migraine, unspecified, not intractable, without status migrainosus; K21.9 Gastro-esophageal reflux disease without esophagitis; F31.9 Bipolar disorder, unspecified
CPT/HCPCS: 36415; 80053; 80069; 80301; 80320; 80329; 81003; 81015; 83735; 84443; 85025; 86140; 96361; 96365; 96366; 96367; 96375; 96376; 99218